=== PATIENT | male | born 1985 | race Caucasian/White ===

== ENCOUNTER 2021-11-24 21:29 | Emergency (ER) | payer OTHER ==
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
[2021-11-25] MEDS ORDERED: LIDOCAINE 1% 2 ML VIAL SUBQ STA (01:13)
[2021-11-25] MEDS ORDERED: BACITRACIN ZINC OINT 1 PACKET TOP STA (03:00)
[2021-11-25 03:09] VITALS: BP 144/90
== END 2021-11-25 03:08 | disposition home or self-care (01) ==
LOC: ED 21:29
DX: S81.812A Laceration without foreign body, left lower leg, initial encounter (principal); W22.8XXA Striking against or struck by other objects, initial encounter; Y93.55 Activity, bike riding
CPT/HCPCS: 12002; 99282; A9270

== ENCOUNTER 2022-02-03 09:11 | Outpatient (CLI) | payer OTHER ==
[2022-02-03 09:58] VITALS: BP 130/80
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
== END 2022-02-03 09:12 | disposition home or self-care (01) ==
LOC: SC 09:11
PROVIDERS: ATTEND Nurse Practitioner Family
DX: R06.83 Snoring (principal); G47.8 Other sleep disorders; G47.10 Hypersomnia, unspecified; R53.83 Other fatigue; F32.A Depression, unspecified; E66.9 Obesity, unspecified; Z68.35 Body mass index [BMI] 35.0-35.9, adult
CPT/HCPCS: 99203; 99212

== ENCOUNTER 2022-03-02 20:35 | Outpatient (CLI) | payer OTHER | END 2022-03-02 20:36 | disposition home or self-care (01) | LOC: SC 20:35 | PROVIDERS: ATTEND Nurse Practitioner Family | DX: R06.83 Snoring (principal); G47.8 Other sleep disorders; G47.10 Hypersomnia, unspecified; R53.83 Other fatigue; F32.A Depression, unspecified | CPT/HCPCS: 95810 ==

== ENCOUNTER 2022-03-26 13:24 | Outpatient (CLI) | payer OTHER ==
[2022-03-26 14:00] VITALS: BP 128/80
--- NOTE | 2022-03-26 14:00 | SLEEP CARE CONSULTATION ---
Information from patient questionnaire entered by Sherlyn Spencer. I have reviewed and concur with the information entered by Sherlyn Spencer. This document represents the service I personally performed and the decisions made by , Lou Smith ARNP. History of Present Illness Service Date and Time: 03/26/2022 1324 Initial [place] Sleepiness Scale score: 6 (02/03/2022) Current [place] Sleepiness Scale score: 8 (03/26/22) Additional HPI information: KADEN PAL returns for follow up and results of the recently performed polysomnography. The patient was informed of the following findings: No significant sleep disordered breathing with an average AHI of 2.7 and nash oxygen saturation of 85%. I explained the pathophysiology behind obstructive sleep apnea. Patient does not have sleep apnea and was advised how weight gain could increase the risk of developing sleep apnea in the future. I strongly encouraged the patient to lose weight. Patient has moderate snoring. Snoring can be reduced by weight loss. Weight loss is best achieved with diet consult. Patient instructed to contact PCP for referral. Snoring can also be treated with an oral appliance from a dentist. Advised to check insurance coverage. In addition, an ENT evaluation can be do to see if other treatment is indicated. Patient counseled not drink alcohol less than 4 hours before bedtime as it can increase snoring and apnea. Patient was cautioned about risks of drowsy driving until sleepiness symptoms resolve. Patient denies drowsy driving. Sleep Study - Results Type of Sleep Study: Polysomnography (COMPLETED 03/02/22) Prior sleep studies: Yes ([facility] 2016 [facility] ) Polysomnography/Home Sleep Study results: IMPRESSION: The quality of the study is good. The patient had normal sleep efficiency. The sleep architecture was normal as well. Respiratory monitoring showed no significant sleep disord ered breathing (AHI = 2.7) or hypoxia (nash oxygen saturation of 85% and only 0.2% to the total sleep time was spent with oxygen saturation below 90%). The patient slept adequately in supine position (supine AHI = 2.0; non-supine = 3.17). Snore was moderate in intensity. There was no significant periodic leg movement of sleep. Cardiac rhythm was normal sinus rhythm without significant arrhythmia. No abnormal behavior (parasomnia) observed during the night. Allergies and Home Medications Drug allergies reviewed: Yes (NKDA) Home medication list reviewed: Yes (no changes) Review of Systems Review of systems same as previous: Yes (no changes) Physical Exam Vital signs obtained and entered by: SHERLYN Gauthier MA Blood Pressure: 128/80 (LEFT ARM) Cuff size: regular Heart Rate: 72 O2 Saturation: 98 Height: 6 ft 3 in Weight: 285 lb Body Mass Index: 35.6 BMI Classification: Obese Impression and Plan Snoring but no significant sleep disordered breathing. Patient did a PSG that did not confirm diagnosis of sleep disordered breathing. His AHI is 2.7 with minimal hypoxia with nash oxygen saturation of 85%. He did have moderate snoring noted during the study. Patient advised that often weight loss will reduce snoring as well as apnea risk. An oral appliance can also be used for snoring. This would require a dental consultation. Patient cautioned not to use other online appliances as can cause bite issues. A list of accredited dentists in [facility] and one local dentist who makes oral appliances is available in office. Patient is advised to check if insurance will cover. An ENT consult can also be helpful to determine if any other treatment is an option. * Attempt to lose weight * Avoid alcohol consumption near bedtime * The patient is cautioned about driving until sleepiness is completely resolved. * Return as needed for follow up. Counseling Topics: Weight loss health impact Visit Type: In Office Time Spent with Patient (minutes): 12 Provider Statement: I spent 100% of the Face to Face Visit with the patient with greater than 50% spent counseling the patient and coordination of care.
== END 2022-03-26 13:25 | disposition home or self-care (01) ==
LOC: SC 13:24
PROVIDERS: ATTEND Nurse Practitioner Family
DX: R06.83 Snoring (principal); E66.9 Obesity, unspecified; Z68.35 Body mass index [BMI] 35.0-35.9, adult
CPT/HCPCS: 99212

== ENCOUNTER 2023-07-18 09:39 | Outpatient (CLI) | payer OTHER ==
--- NOTE | 2023-07-18 15:04 | MRI Report ---
PROCEDURE: Knee LT WO INDICATIONS: LEFT KNEE PAIN TECHNIQUE: Noncontrast sagittal PD fast spin echo and T2 fast spin echo with fat saturation, sagittal 3-D gradie nt sequence with fat saturation; coronal T1 spin echo and PD fast spin echo with fat saturation, and axial PD fast spin echo with fat saturation through the knee. COMPARISON: None. FINDINGS: Image quality: Excellent. Menisci: The medial and lateral menisci demonstrate normal morphology and internal signal. Low-grade partial-thickness tear involving posterior lateral meniscal root is seen. Cruciate ligaments: The anterior and posterior cruciate ligaments appear intact. Medial structures: The medial collateral ligament appears intact. Visualized portions of the pes ans erinus tendons appear normal. No abnormal bursal fluid. Lateral structures: The lateral collateral ligament, long and short heads of the biceps femoris tend on appear intact. The popliteus tendon appears normal. Iliotibial band appears normal. Anterior structures: Distal quadriceps tendinosis is seen. The patella tendon is intact. Patellar ali gnment is normal. No femoral trochlear dysplasia or ventral trochlear prominence. No edema in the i nfrapatellar fat pad. Bones and cartilage: Low to moderate grade chondromalacia involving patellofemoral compartment is see n with osteochondral injuries involving posterior medial aspect of patella. No fracture or dislocatio n. Articulating cartilages in lateral and medial femoral tibial compartments are normal in thickness. Joint space: There is small knee joint fluid. No Montero's cyst. Normal appearing synovial plicae ar e incidentally noted. IMPRESSION: 1. 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 No fracture o r dislocation. Small joint effusion, no loose bodies. 2. No evidence of focal meniscal tear. Low-grade partial-thickness involving posterior lateral menisc al root. 3. Distal quadriceps tendinosis. 4. The cruciate ligaments are intact. Reviewed by: Ramírez Berg MD on 07/18/2023 3:03 PM PDT Approved by: Ramírez Berg MD on 07/18/2023 3:03 PM PDT Station ID: [id number]
== END 2023-07-18 09:40 | disposition home or self-care (01) ==
LOC: DI 09:39
DX: M22.42 Chondromalacia patellae, left knee (principal); S89.92XA Unspecified injury of left lower leg, initial encounter; M25.462 Effusion, left knee; S83.282A Other tear of lateral meniscus, current injury, left knee, initial encounter; M67.962 Unspecified disorder of synovium and tendon, left lower leg